=== PATIENT | female | born 1930 | race Asian ===

== ENCOUNTER 2019-03-22 17:33 | Inpatient (IN) | payer MEDICARE, OTHER ==
[~2019-03-22] VITALS: Ht 149.9 cm; Wt 50.7 kg
[2019-03-24 13:26] VITALS: BP 133/63
== END 2019-03-24 16:15 | disposition home or self-care (01) | DRG 377 ==
LOC: ED 18:02 → EDIP 19:03 → 3NE 20:27 → DCLOUNGE 03-24 16:02
PROVIDERS: ADMIT Internal Medicine; ATTEND Internal Medicine
PROC: 0DB68ZX Excision of Stomach, Via Natural or Artificial Opening Endoscopic, Diagnostic (ICD-10-PCS; principal; 2019-03-23)
DX: K29.61 Other gastritis with bleeding (principal); N17.0 Acute kidney failure with tubular necrosis; D62 Acute posthemorrhagic anemia; D53.9 Nutritional anemia, unspecified; D75.89 Other specified diseases of blood and blood-forming organs; E11.9 Type 2 diabetes mellitus without complications; F03.90 Unspecified dementia, unspecified severity, without behavioral disturbance, psychotic disturbance, mood disturbance, and anxiety; I10 Essential (primary) hypertension; L40.9 Psoriasis, unspecified; M17.12 Unilateral primary osteoarthritis, left knee; Z96.651 Presence of right artificial knee joint; Z88.8 Allergy status to other drugs, medicaments and biological substances
CPT/HCPCS: 36415; 80048; 80053; 82607; 85025; 85610; 86850; 86900; 88305; 93005; 96374; 99291; G0378; J2704; C9113; J7030